=== PATIENT | male | born 1995 | race Caucasian/White ===

== ENCOUNTER 2017-06-14 21:13 | Emergency (ER) | payer OTHER ==
[~2017-06-14] VITALS: Ht 185.4 cm; Wt 68.5 kg
[2017-06-14 21:17] VITALS: BP 126/68
[2017-06-14 21:40] LABS: ABSOLUTE NEUTROPHILS 4.8 thou/uL (1.4-8.2); BASOPHILS 0.4 % (0.0-2.0); EOSINOPHILS 0.8 % (0.0-3.0); HEMATOCRIT 38.6 % (42.0-52.0); HEMOGLOBIN 13.7 gm/dL (14.0-18.0); LYMPHOCYTES 22.5 % (24.0-44.0); MCH 30.3 pg (26.0-34.0); MCHC 35.4 g/dL (28.0-37.0); MCV 85.8 fL (80.0-100.0); MONOCYTES 5.2 % (1.0-8.0); PLATELET COUNT 188 thou/uL (150-400); POLYS 71.1 % (36.0-66.0); RDW 12.8 % (10.5-14.5); WBC 6.8 thou/uL (4.0-11.0)
[2017-06-14 21:51] LABS: CALCIUM 9.3 mg/dL (8.5-10.1); POTASSIUM 3.5 mmol/L (3.5-5.1)
[2017-06-14 21:53] LABS: ALBUMIN 3.7 g/dL (3.4-5.0); DIRECT BILIRUBIN 0.1 mg/dL (<0.1-0.3); TOTAL BILIRUBIN 0.6 mg/dL (<0.1-1.0); TOTAL PROTEIN 7.1 g/dL (6.4-8.2)
[2017-06-14] MEDS ORDERED: PHENERGAN 25 MG25 M1 PO (22:04)
[2017-06-14] MEDS ORDERED: ONDANSETRON HCL4 M2 PO (22:04)
[2017-06-14] MEDS ORDERED: FLONASE 0.05%50 MCG NASAL (22:05)
[2017-06-14] MEDS ORDERED: CLARITIN10 MG PO (22:05)
== END 2017-06-14 22:10 | disposition home or self-care (01) ==
LOC: ER 21:13
PROVIDERS: Emergency Medicine
DX: J32.9 Chronic sinusitis, unspecified (principal); R11.2 Nausea with vomiting, unspecified